=== PATIENT | male | born 1985 | race Caucasian/White ===

== ENCOUNTER 2021-05-30 16:33 | Emergency (ER) | payer MEDICAID ==
[~2021-05-30] VITALS: Ht 180.3 cm; Wt 80.0 kg
[2021-05-30] MEDS ORDERED: TETANUS, DIPHTHERIA, PERTUSSIS VAC/PF 0.5ML (>10YR OLD) IM ONE (17:30)
[2021-05-30] MEDS ORDERED: BACITRACIN ZINC OINT UDPKT TOP ONE (17:30)
[2021-05-30] MEDS ORDERED: LIDOCAINE HCL/PF 1% 10 MG/ML 5ML VIAL INFIL ONE (17:30)
[2021-05-30] MEDS ORDERED: HYDROCODONE/ACETAMINOPHEN 5/325MG TABLET PO ONE (17:30)
[2021-05-30] MEDS ORDERED: LIDOCAINE HCL 1% 20ML VIAL (Pyxis) INJ INFIL NR (17:45)
[2021-05-30] MEDS ORDERED: GENTAMICIN 80MG PREMIX 100 ML IV STA (18:49)
[2021-05-30] MEDS ORDERED: CEFAZOLIN 1000MG PREMIX 50 ML IV STA (18:49)
[2021-05-30] MEDS ORDERED: ONDANSETRON HCL 4MG/2ML INJ IV STA (18:53)
[2021-05-30] MEDS ORDERED: MORPHINE SULFATE 4 MG/ML CPJ (NOT FOR IM USE) IV STA (18:53)
[2021-05-30] MEDS ORDERED: SODIUM CHLORIDE 0.9% 1,000 ML IV ONE (19:00)
[2021-05-31] MEDS ORDERED: MORPHINE SULFATE 4 MG/ML CPJ (NOT FOR IM USE) IV ONE (01:00)
[2021-05-31] MEDS ORDERED: HYDROCODONE/ACETAMINOPHEN 5/325MG TABLET PO ONE (17:30)
[2021-05-31] MEDS: CEFAZOLIN 1000MG PREMIX 50 ML IV SCH (23:07)
[2021-05-31] MEDS: GENTAMICIN 80MG PREMIX 100 ML IV SCH (23:50)
[2021-06-01] MEDS: CEFAZOLIN 1000MG PREMIX 50 ML IV SCH (06:46)
[2021-06-01] MEDS: GENTAMICIN 80MG PREMIX 100 ML IV SCH (07:03)
[2021-06-01 09:36] VITALS: BP 127/80
== END 2021-06-01 09:37 | disposition left against medical advice (07) ==
LOC: ER 16:33
DX: S62.605B Fracture of unspecified phalanx of left ring finger, initial encounter for open fracture (principal); Z20.822 Contact with and (suspected) exposure to COVID-19; W27.0XXA Contact with workbench tool, initial encounter; Y93.89 Activity, other specified; Y92.89 Other specified places as the place of occurrence of the external cause; Y99.8 Other external cause status
CPT/HCPCS: 12004; 73130; 87426; 96365; 96367; 96375; 99285; J0690; J1580; J2270; J3490; J7030